=== PATIENT | male | born 1975 | race Caucasian/White ===

== ENCOUNTER 2022-05-04 07:17 | Day surgery (SDC) | payer OTHER, SELFPAY ==
--- NOTE | 2022-05-04 | PATH_ITS ---
[facility] Accession Number: [id number] No. of containers..01 Tissue . 01 Material submitted: . rectum - RECTUM . 01 Diagnosis: Rectum, Biopsy: Tubular adenoma in 2 of 3 fragments. Hyperplastic polyp, 1 fragment. MRV 05/07/2022 1427 Local . 01 Electronically signed: . Lani Avila MD, Pathologist NPI- [id number] . 01 Gross description: . RECTUM: Received in formalin are multiple fragment(s) of diaz, soft tissue measuring 1.5 x 1.0 x 0.1 cm in aggregate submitted entirely in 1 cassette(s) /CPE 05/05/2022 0637 Local . 01 Pathologist provided ICD-10: D12.8 . 01 CPT . 928526 Specimen Comment: A courtesy copy of this report has been sent to [phone] Performed at: 01 [facility] [address] [place] [address], [place], [place] [id number] MD Abel Buodreaux MD Phone: [phone]
[2022-05-04 07:34] VITALS: BMI 29.5
[2022-05-04 07:37] VITALS: BP 134/76; PULSE 51; RESP 16; TEMP 36.4; O2SAT 99
[2022-05-04] MEDS: LACTATED RINGERS 1,000 ML 200 ML IV (07:41)
--- NOTE | 2022-05-04 08:29 | PM.HP.1 ---
History of Present Illness History of Present Illness Date Patient Seen: 05/04/22 Time Patient Seen: 08:29 Chief complaint: SDC Narrative: The patient presents for colorectal screening. They have never had any previous examination for such. No personal or family history of colon cancer. On further history denies any recent gastrointestinal symptoms. No nausea, vomiting, abdominal pain, loss of appetite, unexplained weight loss, change in bowel habits, or blood per rectum. Patient History Family & Social History Social History: household members spouse Tobacco & Substance use: Smoking Status Never smoker alcohol intake current alcohol intake frequency a few times a week Substance Use Type does not use Meds Home Medications and Allergies Home Medications Medication Instructions Recorded Confirmed Type loratadine 10 mg tablet (Claritin) 10 mg PO DAILY 05/04/22 05/04/22 History Allergies Allergy/AdvReac Type Severity Reaction Status Date / Time No Known Drug Allergies Allergy Verified 05/04/22 07:33 Exam Vital Signs (past 8 hours): - 05/04/22 07:37 Temperature 97.6 F Pulse Rate 51 L Respiratory Rate 16 Blood Pressure 134/76 Pulse Oximetry 99 Oxygen Delivery Method Room Air Oxygen Delivery Method Room Air Narrative Exam Narrative: General adult man alert oriented no acute distress Assessment & Plan Assessment & Plan narrative: The patient requires colorectal screening and colonoscopy is recommended. Technical details were discussed. Risks, benefits, alternatives explained. Risks including but not limited to myocardial infarction, aspiration, bleeding, pain, missed lesion, incomplete examination, need for further radiographic studies, colonic perforation, and need for major abdominal surgery were discussed. All questions were answered to their satisfaction, and they are in agreement with this plan. Time Spent With Patient Critical Care time: I spent a total of [] minutes of critical care time on this patient's care today; this time is exclusive of procedural time.
[2022-05-04 08:57] VITALS: BP 109/78; PULSE 61; RESP 16; TEMP 36.1; O2SAT 97
--- NOTE | 2022-05-04 09:00 | PM.OP.COLON ---
Operative Date/Time/Diagnoses Date of procedure: 05/04/22 Time of procedure: 09:00 Pre-op diagnosis: Colorectal screening Post-op diagnosis: other (Colonic polyps x2) Procedure & Clinicians Study performed: Colonoscopy and polypectomy Same procedure as scheduled: Yes Indications: Colorectal screening Surgeon: Elgin Madison Procedure Notes Procedure in detail: The history and physical was performed/updated and the patient is ASA class is 2. The procedure was discussed in detail with the patient. Potential risks complications including infection, bleeding, missed diagnosis, perforation, need for surgery, and were explained. Their questions were answered and informed consent was obtained. Patient was brought to the procedure room and placed standard monitoring equipment. The patient's vital signs were monitored continuously throughout the entire procedure. Prior to starting time-out was performed. The patient was placed in the left lateral recumbent position. Procedural sedation was administered by anesthesia. Examination began with a thorough inspection of the perianal area there was no evidence of fissures, fistulae, external hemorrhoids or cutaneous malignancy. The colonoscopy scope was then placed into the anal canal and was advanced to the cecum, which was identified by the ileocecal valve, the appendiceal orifice and the confluence of the taenia. The scope was then slowly withdrawn examining colon thoroughly in all directions, irrigating it of any residual stool. Within the rectum there were 2 polyps both less than 1 cm which were removed with cold snare. The remainder of the colon was normal in its appearance without masses or inflammation. The patient tolerated the procedure well. They will be discharged once criteria are met. The prep was of good/excellent quality. The withdrawl time was 7 minutes. Specimen(s): other (Rectal polyps x2) Impression: Colonic polyps Post-procedure Plan for aftercare: Follow-up is dependent on pathology findings Disposition: same day surgery
[2022-05-04 09:03] VITALS: BP 121/85; PULSE 62; RESP 14; O2SAT 97
== END 2022-05-04 09:21 | disposition home or self-care (01) ==
PROVIDERS: PCP Student in an Organized Health Care Education/Training Program; Referring Provider Surgery; Visit Provider Surgery
PROC: 0DJD8ZZ Inspection of Lower Intestinal Tract, Via Natural or Artificial Opening Endoscopic (ICD-10-PCS; CPT 45378; principal; 2022-05-04 08:30)
DX: Z12.11 Encounter for screening for malignant neoplasm of colon (principal); D12.8 Benign neoplasm of rectum
CPT/HCPCS: 45385; J2704